=== PATIENT | male | born 1965 | race Caucasian/White ===

== ENCOUNTER 2017-08-23 02:54 | Emergency (ER) | payer OTHER ==
[~2017-08-23] VITALS: Ht 190.5 cm; Wt 83.7 kg
[2017-08-23] MEDS ORDERED: ONDANSETRON PF 4 MG/2 ML VIAL. ONE (03:17)
[2017-08-23] MEDS ORDERED: HYDROmorphone PF 2 MG/ML VIAL ONE (03:17)
[2017-08-23] MEDS ORDERED: HYDROmorphone PF 2 MG/ML VIAL IV ONE (03:30)
[2017-08-23] MEDS ORDERED: KETOROLAC 30 MG/ML VIAL. IV ONE (03:30)
[2017-08-23] MEDS ORDERED: ONDANSETRON PF 4 MG/2 ML VIAL. IV ONE (03:30)
[2017-08-23] MEDS ORDERED: HYDROmorphone PF 1 MG/ML DISP.SYRIN IV/SQ PRN (03:30)
--- NOTE | 2017-08-23 03:41 | PHYS DOC ---
General Chief Complaint: ABDOMINAL PAIN Stated Complaint: ABDOMINAL PAIN,VOMITING X 1 WK Time Seen by MD: 03:06 Source: patient Exam Limitations: no limitations Problems: History of Present Illness Initial Comments Patient is a 52-year-old male who comes to the ED complaining of severe abdominal pain. Patient states that approximately 9 PM last night he developed sudden onset severe low abdominal and left-sided lower abdominal pain. He describes the pain as sharp and stabbing, severe 8 on a pain scale on my evaluation. He denies any nausea but states that several times throughout the night the pain grew so great that he feels he threw up due to severe pain. He denies any nausea no fever chills or body aches, his last bowel movement was a couple days ago which he states is normal for his baseline bowel regimen. Last by mouth intake was steak and butterscotch pudding for dinner last night made by his , although others ate the same thing no one else has exhibited any symptoms. He otherwise denies any exotic food intake or travel. He does admit that his abdomen feels very bloated. On my evaluation he appears to be in severe discomfort, he is sitting up on the side of the bed moving consistent with renal colic symptoms. He does deny any flank pain no radiation to his groin and denies any difficulty with urination. Other than a pneumothorax in the remote past successfully treated with chest tube he denies any other medical issues and takes no daily medications he does smoke about 1 pack per day. Dilaudid 1 mg IV takes his pain from 8 on a pain scale to "just about nothing." Timing/Duration: other Severity: severe Modifying Factors: improves with other Associated Symptoms: nausea/vomiting, other Allergies: Coded Allergies: No Known Drug Allergies (Unverified , 08/23/17) Past Medical History Medical History: other (pneumothorax) Surgical History: other (chest tube, back surgery) Social History Smoker: cigarettes (about a pack a day at least for greater than 40 years) Alcohol: none Drugs: none Departure Disposition: XFER SHT-TRM HOSP Condition: STABLE Review of Systems Constitutional: denies chills, denies diaphoresis, denies fever, denies malaise Respiratory: denies cough, denies shortness of breath, denies wheezing Cardiovascular: denies chest pain, denies palpitations, denies syncope Gastrointestinal: see HPI, abdominal pain, denies constipation, denies diarrhea , nausea, denies vomiting Genitourinary: denies dysuria, denies frequency, denies hematuria, denies pain Musculoskeletal: denies back pain, denies joint pain, denies joint swelling, denies neck pain Psychiatric/Neurological: denies headache, denies numbness, denies paresthesia Hematologic/Lymphatic: denies blood clots, denies easy bleeding, denies easy bruising Physical Exam General Appearance: WD/WN, severe distress Eyes: bilateral eye normal inspection, bilateral eye PERRL, bilateral eye EOMI Ear, Nose, Throat: hearing grossly normal, normal ENT inspection, normal pharynx Neck: non-tender, supple Respiratory: normal breath sounds, no respiratory distress Cardiovascular: normal peripheral pulses, regular rate, rhythm Gastrointestinal: soft (distended/tympanic, negative Leroy and McBurney the palpation of any part of the abdomen produces severe discomfort at the left abdomen and left lower quadrant), no pulsatile mass Rectal: deferred Back: no CVA tenderness, no vertebral tenderness Extremities: normal range of motion, non-tender, normal inspection 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 PHYSICIAN: SUDARSHAN TELLEZ DO REASON: severe LLQ pain w/distension stone vs obst vs divertic PROCEDURE: CT ABDOMEN PELVIS WO CONTRAST INDICATION: 213648.001 Severe LLQ pain w/distension. No priors. COMPARISON: None. TECHNIQUE: Axial CT images were obtained through the abdomen and pelvis without intravenous contrast. Limited assessment of solid organ structures and vasculature secondary to lack of intravenous contrast. One or more of the following individualized dose reduction techniques were utilized for this examination: 1. Automated exposure control; 2. Adjustment of the mA and/or kV according to patient size; 3. Use of iterative reconstruction technique. FINDINGS: Mild calcific atherosclerosis without abdominal aortic aneurysm. Small fat-containing inguinal hernias. There is suspected bladder wall thickening as well as a high density structure along the posterior lateral wall of the urinary bladder on the right measuring up to about 6 x 4.8 cm. No intrahepatic bile duct dilation. Gallbladder partially contracted. Pancreas not well evaluated on noncontrast examination. Spleen unremarkable. No left-sided hydronephrosis. Multiple cystic lesions of the right kidney measuring up to approximately 47 mm. No right-sided hydronephrosis. There may be trace free fluid in the pelvis. The appendix does not appear grossly inflamed. Fat-containing umbilical hernia is seen. There are some dilated loops of small bowel seen throughout a portion of the abdomen measuring up to approximately 31 mm. Degenerative changes throughout spine. Degenerative changes right hip with suspected subchondral cyst right femoral head. Large disc protrusion and osteophyte formation is identified at L3-4 with severe central canal stenosis. There is additional disc protrusions and osteophyte formation at other levels contributing to central canal neural foraminal stenosis. Subcentimeter sclerotic focus sacrum. IMPRESSION: 1. There are some mildly dilated loops of small bowel within the abdomen. Would correlate with symptoms in the region to ensure that this is not pathologic in causes from ileus or partial obstruction. 2. Within the urinary bladder along its posterior lateral wall of the right there is high density region identified. This could be secondary to debris/blood within the lumen but a bladder mass is in the differential for this finding. Further workup could be obtained with urology consultation but if additional imaging workup is desired at this time CT urogram could be obtained with delayed images during excretory phase. 3. Portions of the stomach wall appears thickened. Is difficult to tell if this is secondary to lack of distention or if there is a pathologic process such as gastritis or a gastric mass. 4. Suspected cystic lesions of the right kidney. 5. Degenerative changes of the spine are identified with large disc protrusions and osteophyte formation contributing to multilevel central canal and neural foraminal stenosis which is severe at some of the levels. Electronically signed by: Chanel Gutiérrez MD (08/23/2017 4:27 AM) [facility] DICTATED AND SIGNED BY: CHANEL GUTIÉRREZ MD DATE: 08/23/17 0407 CC: PCP,NO; SUDARSHAN TELLEZ DO ~ Pertinent labs: White blood cells 18.3, bands 4, lipase 446, urinalysis greater than 40 red blood cells and large blood Impressions: Bowel obstruction 6 cm x 4.8 cm bladder mass Questionable gastric mass Elevated lipase 0450: I discussed the patient with recreation attendant hospitalist Dr. Atkins at [facility]. After thorough discussion of the patient's history, ED presentation, and results he accepts the patient for MedSurg admission at [facility]. He does request that on arrival to the floor the patient's nurse contacted on-call urology and on-call general surgery to advise them of inpatient consultations. Departure Time of Disposition: 04:57 Disposition: 02 XFER SHT-TRM HOSP Condition: STABLE ROSALINDASUDARSHAN DO Aug 23, 2017 03:41
[2017-08-23 03:54] LABS: BASO # 0.1 x10^3/uL (0.0-0.2); BASO % 0 % (0-3); EOS # 0.3 x10^3/uL (0.0-0.7); EOS % 2 % (0-3); HEMATOCRIT 47.9 % (39.0-53.0); HEMOGLOBIN 16.6 g/dL (13.0-17.5); LYMPH # 1.8 x10^3/uL (1.0-4.8); LYMPH % 10 % (24-48); MEAN CORPUSCULAR HEMOGLOBIN 32 pg (25-35); MEAN CORPUSCULAR HGB CONC 35 g/dL (31-37); MEAN CORPUSCULAR VOLUME 91 fL (79-100); MONO % 6 % (0-9); NEUT # 15.1 x10^3uL (1.8-7.7); NEUT % 83 % (31-73); PLATELET COUNT 202 x10^3/uL (140-400); RED BLOOD COUNT 5.24 x10^6/uL (4.30-5.70); RED CELL DISTRIBUTION WIDTH 13.6 % (11.5-14.5); WHITE BLOOD COUNT 18.3 x10^3/uL (4.0-11.0)
[2017-08-23 04:09] LABS: CALCIUM 10.2 mg/dL (8.5-10.1); CREATININE 1.3 mg/dL (0.7-1.3); GFR 57.5; POTASSIUM 4.4 mmol/L (3.5-5.1); TOTAL BILIRUBIN 0.3 mg/dL (0.2-1.0); TOTAL PROTEIN 7.9 g/dL (6.4-8.2)
[2017-08-23 04:10] LABS: % BANDS 4 % (0-9); % EOS 1 % (0-5); % LYMPHS 14 % (24-48); % MONOS 4 % (0-10); % SEGS 77 % (35-66); PLT ESTIMATE ADEQUATE (ADEQUATE)
[2017-08-23 04:11] LABS: BARBITURATES NEG (NEG); BENZODIAZEPINES NEG (NEG); CANNABINOIDS NEG (NEG); COCAINE NEG (NEG); METHADONE NEG (NEG); OPIATES NEG (NEG); PHENCYCLIDINE NEG (NEG)
[2017-08-23 04:13] LABS: BILIRUBIN,URINE NEG (NEG); CLARITY,URINE CLOUDY; COLOR,URINE BROWN; GLUCOSE,URINE NEG (NEG)
[2017-08-23 04:14] LABS: BACTERIA,URINE FEW /HPF (0-FEW); NITRITE,URINE NEG (NEG); RBC,URINE >40 /HPF (0-2); UROBILINOGEN,URINE 0.2 mg/dL (0.2 mg/dL)
[2017-08-23 04:15] LABS: AMPHETAMINE/METHAMPHETAMINE NEG (NEG)
--- NOTE | 2017-08-23 04:32 | RAD ---
INDICATION: 500850.001 Severe LLQ pain w/distension. No priors. COMPARISON: None. TECHNIQUE: Axial CT images were obtained through the abdomen and pelvis without intravenous contrast. Limited assessment of solid organ structures and vasculature secondary to lack of intravenous contrast. One or more of the following individualized dose reduction techniques were utilized for this examination: 1. Automated exposure control; 2. Adjustment of the mA and/or kV according to patient size; 3. Use of iterative reconstruction technique. FINDINGS: Mild calcific atherosclerosis without abdominal aortic aneurysm. Small fat-containing inguinal hernias. There is suspected bladder wall thickening as well as a high density structure along the posterior lateral wall of the urinary bladder on the right measuring up to about 6 x 4.8 cm. No intrahepatic bile duct dilation. Gallbladder partially contracted. Pancreas not well evaluated on noncontrast examination. Spleen unremarkable. No left-sided hydronephrosis. Multiple cystic lesions of the right kidney measuring up to approximately 47 mm. No right-sided hydronephrosis. There may be trace free fluid in the pelvis. The appendix does not appear grossly inflamed. Fat-containing umbilical hernia is seen. There are some dilated loops of small bowel seen throughout a portion of the abdomen measuring up to approximately 31 mm. Degenerative changes throughout spine. Degenerative changes right hip with suspected subchondral cyst right femoral head. Large disc protrusion and osteophyte formation is identified at L3-4 with severe central canal stenosis. There is additional disc protrusions and osteophyte formation at other levels contributing to central canal neural foraminal stenosis. Subcentimeter sclerotic focus sacrum. IMPRESSION: 1. There are some mildly dilated loops of small bowel within the abdomen. Would correlate with symptoms in the region to ensure that this is not pathologic in causes from ileus or partial obstruction. 2. Within the urinary bladder along its posterior lateral wall of the right there is high density region identified. This could be secondary to debris/blood within the lumen but a bladder mass is in the differential for this finding. Further workup could be obtained with urology consultation but if additional imaging workup is desired at this time CT urogram could be obtained with delayed images during excretory phase. 3. Portions of the stomach wall appears thickened. Is difficult to tell if this is secondary to lack of distention or if there is a pathologic process such as gastritis or a gastric mass. 4. Suspected cystic lesions of the right kidney. 5. Degenerative changes of the spine are identified with large disc protrusions and osteophyte formation contributing to multilevel central canal and neural foraminal stenosis which is severe at some of the levels. Electronically signed by: Bryon Zhang MD (08/23/2017 4:27 AM) [facility]
[2017-08-23 04:34] VITALS: BP 111/69
[2017-08-23] MEDS ORDERED: IV NORMAL SALINE 1,000ML 1,000 ML IV SCH (05:00)
== END 2017-08-23 06:25 | disposition short-term general hospital (02) ==
LOC: ER 02:54
DX: K56.609 Unspecified intestinal obstruction, unspecified as to partial versus complete obstruction (principal); N32.9 Bladder disorder, unspecified; R74.8 Abnormal levels of other serum enzymes; F17.210 Nicotine dependence, cigarettes, uncomplicated
CPT/HCPCS: 36415; 74176; 80053; 80307; 81001; 83605; 83690; 85007; 85025; 96361; 96374; 96375; 99285; J1170; J1885; J2405; G0479; J7030